=== PATIENT | female | born 1955 | race Caucasian/White ===

== ENCOUNTER 2017-03-22 17:09 | Emergency (ER) | payer OTHER ==
[~2017-03-22] VITALS: Ht 167.6 cm; Wt 63.5 kg
[2017-03-22 17:30] VITALS: BP 172/94
== END 2017-03-22 21:17 | disposition home or self-care (01) ==
LOC: ER 17:21
DX: R51 Headache (principal); M25.531 Pain in right wrist; M25.532 Pain in left wrist; M25.552 Pain in left hip; Z88.6 Allergy status to analgesic agent; W18.39XA Other fall on same level, initial encounter; Y93.89 Activity, other specified; Y92.89 Other specified places as the place of occurrence of the external cause; Y99.0 Civilian activity done for income or pay
CPT/HCPCS: 70450